=== PATIENT | female | born 1980 | race African-American/Black ===

== ENCOUNTER → 2016-07-28 | Outpatient (CLI) | payer MEDICAID | LOC: OD 10:49 | PROVIDERS: ATTEND Physician Assistant | DX: R50.9 Fever, unspecified (principal); R61 Generalized hyperhidrosis | CPT/HCPCS: 71020 ==

== ENCOUNTER 2016-10-15 20:24 | Emergency (ER) | payer MEDICAID ==
[2016-10-15 22:09] VITALS: BP 128/85
[2016-10-16] MEDS ORDERED: OXYCODONE-ACETAMINOPHEN 5-325 MG TABLET PO ONE (02:48)
[2016-10-16] MEDS ORDERED: CYCLOBENZAPRINE HCL 10 MG TABLET PO ONE (02:48)
--- NOTE | 2016-10-16 02:51 | ER Document Report ---
HPI - HPI Patient complains to provider of: low back pain Onset: This afternoon Onset/Duration: Sudden Quality of pain: Sharp Pain Level: 5 Context: Patient states she has a history of chronic low back pain that was aggravated today after lifting a 5 gallon bucket while at work. Patient complains of sudden onset of left sided low back pain. Patient complains of radiculopathy, although states that she has chronic radicular pain into the left lower extremity. Patient denies any urinary retention or incontinence. Associated Symptoms: Other - Left lower back pain. denies: Fever, Weakness Exacerbated by: Movement Relieved by: Denies Similar symptoms previously: Yes Recently seen / treated by doctor: No - ROS ROS below otherwise negative: Yes Systems Reviewed and Negative: Yes All other systems reviewed and negative - CONSTITUTIONAL Constitutional: DENIES: Fever - NEURO Neurology: DENIES: Weakness - REPRODUCTIVE LMP: 09-17-16 - MUSCULOSKELETAL Musculoskeletal: REPORTS: Extremity pain - Left lower extremity, Back Pain. DENIES: Swelling - Left lower back - DERM Skin Color: Normal Skin Problems: None Past Medical History - General Information source: Patient - Social History Smoking Status: Current Every Day Smoker Frequency of alcohol use: Occasional Drug Abuse: None Occupation: [employer] Family History: Reviewed & Not Pertinent Patient has suicidal ideation: No Patient has homicidal ideation: No - Past Medical History Cardiac Medical History: Reports: Hx Hypertension Denies: Hx Coronary Artery Disease, Hx Heart Attack Pulmonary Medical History: Denies: Hx Asthma, Hx Bronchitis, Hx COPD, Hx Pneumonia Neurological Medical History: Denies: Hx Cerebrovascular Accident, Hx Seizures Endocrine Medical History: Reports: Hx Hypothyroidism Renal/ Medical History: Denies: Hx Peritoneal Dialysis Musculoskeltal Medical History: Denies Hx Arthritis Past Surgical History: Reports: Hx Orthopedic Surgery, Hx Thyroid Surgery, Hx Tubal Ligation - Immunizations Hx Diphtheria, Pertussis, Tetanus Vaccination: No Vertical Provider Document - CONSTITUTIONAL Agree With Documented VS: Yes Exam Limitations: No Limitations General Appearance: WD/WN, No Apparent Distress Notes: PHYSICAL EXAMINATION: GENERAL: Well-appearing, well-nourished and in no acute distress. HEAD: Atraumatic, normocephalic. EYES: sclera clear, anicteric, conjunctiva are normal. ENT: nares patent, Moist mucous membranes. NECK: Normal range of motion, supple no lymphadenopathy LUNGS: respirations unlabored HEART: Regular rate and rhythm without murmurs EXTREMITIES: Normal range of motion, no pitting or edema. No cyanosis. Gait normal, pt ambulates without difficulty BACK: Left lower lumbar paraspinal tenderness, no midline tenderness, no deformities or step-offs. No CVA tenderness. NEUROLOGICAL: Cranial nerves grossly intact. Normal speech, normal gait. No saddle anesthesia. PSYCH: Normal mood, normal affect. SKIN: Warm, Dry, normal turgor, no rashes or lesions noted. - INFECTION CONTROL TRAVEL OUTSIDE OF THE [place] IN LAST 30 DAYS: No - RESPIRATORY O2 Sat by Pulse Oximetry: 98 Course - Vital Signs Vital signs: Temp Pulse Resp BP Pulse Ox 98.2 F 80 18 128/85 H 98 10/15/16 22:06 10/15/16 22:06 10/15/16 22:06 10/15/16 22:06 10/15/16 22:06 Discharge - Discharge Clinical Impression: History of chronic back pain Low back strain Qualifiers: Encounter type: initial encounter Qualified Code(s): S39.012A - Strain of muscle, fascia and tendon of lower back, initial encounter Radiculopathy Qualifiers: Spinal region: lumbar Qualified Code(s): M54.16 - Radiculopathy, lumbar region Condition: Stable Disposition: HOME, SELF-CARE Instructions: Ice Packs ([facility]), Oral Narcotic Medication ([facility]), Low Back Pain ( [facility]), Muscle Strain ([facility]) Additional Instructions: Return immediately for any new or worsening symptoms Followup with your primary care provider, call tomorrow to make a followup appointment Take your muscle relaxer that you have at home as prescribed Prescriptions: Oxycodone HCl/Acetaminophen [Percocet 5-325 mg Tablet] 1 tab PO ASDIR PRN #15 tablet PRN Reason: Forms: Return to Work Referrals: KAYLYN MITCHELL PA [NO LOCAL MD] - 10/18/16
== END 2016-10-16 03:09 | disposition home or self-care (01) ==
LOC: ER 20:24
DX: S39.012A Strain of muscle, fascia and tendon of lower back, initial encounter (principal); X50.0XXA Overexertion from strenuous movement or load, initial encounter; Y99.0 Civilian activity done for income or pay; G89.29 Other chronic pain; M54.5 Low back pain; I10 Essential (primary) hypertension; E03.9 Hypothyroidism, unspecified; Z98.51 Tubal ligation status
CPT/HCPCS: 99283; J3490

== ENCOUNTER → 2016-11-24 | Outpatient (CLI) | payer MEDICAID ==
--- NOTE | 2016-11-24 10:16 | RADIOLOGY REPORT (SQ) ---
EXAM DESCRIPTION: LUMBAR SPINE COMPLETE COMPLETED DATE/TIME: 11/24/2016 9:40 am REASON FOR STUDY: LOW BACK PAIN M54.5 LOW BACK PAIN COMPARISON: None. NUMBER OF VIEWS: Five views including obliques. TECHNIQUE: AP, lateral, oblique, and sacral radiographic images acquired of the lumbar spine. LIMITATIONS: None. FINDINGS: MINERALIZATION: Normal. SEGMENTATION: L5 may represent a transitional vertebra. ALIGNMENT: Normal. VERTEBRAE: Maintained height. No fracture or worrisome bone lesion. DISCS: Preserved height. No significant osteophytes or end plate irregularity. POSTERIOR ELEMENTS: Pedicles and facets are intact. No pars defect or posterior arch defects. HARDWARE: None in the spine. PARASPINAL SOFT TISSUES: Normal. PELVIS: Intact as visualized. No fractures or worrisome bone lesions. SI joints intact. OTHER: No other significant finding. IMPRESSION: L5 may represent a transitional vertebra. TECHNICAL DOCUMENTATION: JOB ID: [id number] [employer]- All Rights Reserved
== END ==
LOC: OD 09:06
PROVIDERS: ATTEND Family Medicine
DX: M54.5 Low back pain (principal)
CPT/HCPCS: 72110

== ENCOUNTER → 2016-12-09 | Outpatient (CLI) | payer MEDICAID ==
[2016-12-09 13:56] LABS: HEMATOCRIT 37.3 % (36.0-47.0); HEMOGLOBIN 11.9 g/dL (12.0-15.5); HGB HCT DIFFERENCE -1.6; MEAN CORPUSCULAR HEMOGLOBIN 28.5 pg (27.0-33.4); MEAN CORPUSCULAR HGB CONC 31.8 g/dL (32.0-36.0); MEAN CORPUSCULAR VOLUME 90 fl (80-97); RED BLOOD COUNT 4.17 10^6/uL (3.72-5.28); RED CELL DISTRIBUTION WIDTH 16.2 % (11.5-14.0); WHITE BLOOD COUNT 9.4 10^3/uL (4.0-10.5)
[2016-12-09 14:20] LABS: ALANINE AMINOTRANSFERASE 32 U/L (9-52); ALBUMIN 4.5 g/dL (3.5-5.0); ALKALINE PHOSPHATASE 48 U/L (38-126); ANION GAP 10 (5-19); ASPARTATE AMINO TRANSFERASE 42 U/L (14-36); BILIRUBIN,DIRECT 0.3 mg/dL (0.0-0.4); BILIRUBIN,TOTAL 0.4 mg/dL (0.2-1.3); BLOOD UREA NITROGEN 17 mg/dL (7-20); CALCIUM 9.4 mg/dL (8.4-10.2); CARBON DIOXIDE 30 mmol/L (22-30); CHLORIDE 101 mmol/L (98-107); CREATININE RESULT 1.29 mg/dL (0.52-1.25); GLUCOSE 96 mg/dL (75-110); POTASSIUM 4.6 mmol/L (3.6-5.0); SODIUM 141.1 mmol/L (137-145); TOTAL PROTEIN 8.5 g/dL (6.3-8.2)
[2016-12-09 14:26] LABS: C-REACTIVE PROTEIN < 5.0 mg/L (<10.0)
[2016-12-09 14:49] LABS: ERYTHROCYTE SEDIMENTATION RATE 21 mm/hr (0-20)
== END ==
LOC: OD 13:07
PROVIDERS: ATTEND Family Medicine
DX: M25.50 Pain in unspecified joint (principal)
CPT/HCPCS: 36415; 80053; 84443; 85027; 85652; 86038; 86140; 86430

== ENCOUNTER → 2017-06-14 | Outpatient (CLI) | payer MEDICAID ==
--- NOTE | 2017-06-14 09:06 | RADIOLOGY REPORT (SQ) ---
EXAM DESCRIPTION: SHOULDER RIGHT 2 OR MORE VIEWS COMPLETED DATE/TIME: 06/14/2017 8:39 am REASON FOR STUDY: PAIN IN RIGHT SHOULDER M25.511 PAIN IN RIGHT SHOULDER COMPARISON: None. NUMBER OF VIEWS: Three views. TECHNIQUE: Internal rotation, external rotation, and Y view images acquired of the right shoulder. LIMITATIONS: None. FINDINGS: MINERALIZATION: Normal. BONES: No acute fracture or dislocation. No worrisome bone lesions. No significant osteophytes. GLENOHUMERAL JOINT: No significant findings. ACROMIOCLAVICULAR JOINT: No large osteophytes. SOFT TISSUES: No calcifications. VISUALIZED RIBS, SPINE, AND LUNG: No other significant finding. OTHER: No other significant finding. IMPRESSION: NEGATIVE STUDY OF THE RIGHT SHOULDER. NO EXPLANATION FOR PAIN. TECHNICAL DOCUMENTATION: JOB ID: [id number] [employer]- All Rights Reserved
== END ==
LOC: OD 08:27
PROVIDERS: ATTEND Physician Assistant
DX: M25.511 Pain in right shoulder (principal)

== ENCOUNTER → 2017-12-07 | Outpatient (CLI) | payer MEDICAID ==
--- NOTE | 2017-12-08 08:20 | WOMENS IMAGING REPORT ---
EXAM DESCRIPTION: 3D DX MAMMO BILAT COMPLETED DATE/TIME: 12/07/2017 9:37 am REASON FOR STUDY: MASTODYNIA; N64.4 N64.4 MASTODYNIA COMPARISON: None. TECHNIQUE: Standard craniocaudal and mediolateral oblique views of each breast recorded using digita l acquisition and breast tomosynthesis. Bilateral 90 mediolateral mammograms were also obtained LIMITATIONS: None. FINDINGS: RIGHT BREAST MASSES: No suspicious masses. CALCIFICATIONS: No new or suspicious calcifications. ARCHITECTURAL DISTORTION: None. DEVELOPING DENSITY: None. ASYMMETRY: None noted. OTHER: No other significant findings. LEFT BREAST MASSES: No suspicious masses. CALCIFICATIONS: No new or suspicious calcifications. ARCHITECTURAL DISTORTION: None. DEVELOPING DENSITY: None. ASYMMETRY: None noted. OTHER: No other significant finding. Read with the assistance of CAD: .[facility] - R2 Cenova Version 1.3 .[facility] - R2 Cenova Version 1.3 .[facility] - R2 Cenova Version 2.4 .[facility] [place] R2 Cenova Version 2.4 .[facility] - R2 Ent Surgeon Version 9.2 IMPRESSION: No mammographic evidence for malignancy bilaterally. BREAST DENSITY: a. The breasts are almost entirely fatty. BIRAD: 1 Negative. RECOMMENDATION: RECOMMENDED FOLLOW UP: Please continue bilateral screening mammography in November 2018 SPECIFIC INTERVENTION/IMAGING/CONSULTATION RECOMMENDED:Please continue bilateral screening mammograph y in November 2018 COMMUNICATION:Patient notified by letter COMMENT: The patient has been notified of the results by letter per SA requirements. Additional no tification policies are in place for contacting patient with suspicious or incomplete findings. Quality ID #[id number]: The [employer] recommends an annual screening mammogram for women aged 40 years or over. This facility utilizes a reminder system to ensure that all patients receive reminder letters, and/or direct phone calls for appointments. This includes reminders for routine scr eening mammograms, diagnostic mammograms, or other Breast Imaging Interventions when appropriate. Th is patient will be placed in the appropriate reminder system. The [employer] (ACR) has developed recommendations for screening MRI of the breast s in certain patient populations, to be used in conjunction with mammography. Breast MRI surveillanc e may be appropriate for women with more than 20% lifetime risk of developing breast cancer as deter mined by genetic testing, significant family history of the disease, or history of mantle radiation f or Hodgkins Disease. ACR Practice Guidelines 2008. DBT Technology DBT is a type of tomographic mammography. With conventional mammography, overlapping breast tissue ma y make lesions difficult to detect, even with good compression. DBT uses an x-ray tube that rotates a round the breast, taking images at different angles. These images are then combined to create thin sl ices of the breast that the radiologist can view as a 3D reconstruction. The Hologic unit can perform full-field digital mammograms (2D imaging); or DBT (3D imaging); or both, in a combination mode that quickly performs both the mammogram and the tomosynthesis scan while the breast is still compressed. PQRS 6045F: Fluoroscopic imaging is not utilized for breast tomosynthesis. TECHNICAL DOCUMENTATION: FINDING NUMBER: (1) ASSESSMENT: (1) JOB ID: [id number] [employer]- All Rights Reserved Reading location - IP/workstation name: [email or web address]
== END ==
LOC: WI 08:57
PROVIDERS: ATTEND Physician Assistant
DX: N64.4 Mastodynia (principal)
CPT/HCPCS: 77066; G0279; 77062

== ENCOUNTER 2018-01-29 20:11 | Emergency (ER) | payer OTHER, MEDICAID ==
[2018-01-29] MEDS ORDERED: OXYCODONE-ACETAMINOPHEN 5-325 MG TABLET PO ONE (20:41)
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
[2018-01-30 02:58] VITALS: BP 137/83
== END 2018-01-29 22:22 | disposition home or self-care (01) ==
LOC: ER 20:11
DX: M54.41 Lumbago with sciatica, right side (principal); V49.50XA Passenger injured in collision with unspecified motor vehicles in traffic accident, initial encounter; I10 Essential (primary) hypertension; F17.200 Nicotine dependence, unspecified, uncomplicated; Z88.0 Allergy status to penicillin
CPT/HCPCS: 72070; 72110; 99283

== ENCOUNTER 2018-11-17 21:25 | Emergency (ER) | payer MEDICAID, OTHER ==
[2018-11-17 22:02] VITALS: BP 111/72
[2018-11-18] MEDS ORDERED: DIAZEPAM 5 MG TABLET PO ONE (02:56)
--- NOTE | 2018-11-18 03:02 | ER Document Report ---
HPI - HPI Time Seen by Provider: 11/18/18 02:48 Pain Level: 2 Context: Patient is a 38-year-old female that comes to the emergency department for chief complaint of muscle spasms. She states she is mainly getting them in her legs, also in her mid to upper back. She states that this started this afternoon, she did spend the morning outside for a couple of hours in the sun, she states that she has been rehydrating since then and drink "tons of fluids". She states right now she has a spasm in her mid upper back, not currently in the legs, this comes and goes. She states that she has chronic muscle spasms. She denies fever/chills, chest pain, shortness of breath, abdominal pain, nausea/vomiting, headache, focal numbness or weakness, incontinence. Past medical history includes hypothyroidism, fibromyalgia, hypertension. - REPRODUCTIVE Reproductive: DENIES: : Past Medical History - General Information source: Patient - Social History Smoking Status: Never Smoker Frequency of alcohol use: None Drug Abuse: None Lives with: Family Family History: Reviewed & Not Pertinent - Past Medical History Cardiac Medical History: Reports: Hx Hypertension Denies: Hx Coronary Artery Disease, Hx Heart Attack Pulmonary Medical History: Denies: Hx Asthma, Hx Bronchitis, Hx COPD, Hx Pneumonia Neurological Medical History: Denies: Hx Cerebrovascular Accident, Hx Seizures Endocrine Medical History: Reports: Hx Diabetes Mellitus Type 2, Hx Hypothyroidism Renal/ Medical History: Denies: Hx Peritoneal Dialysis Musculoskeletal Medical History: Reports Hx Arthritis Past Surgical History: Reports: Hx Orthopedic Surgery, Hx Thyroid Surgery, Hx Tubal Ligation - Immunizations Hx Diphtheria, Pertussis, Tetanus Vaccination: No Vertical Provider Document - CONSTITUTIONAL General Appearance: WD/WN, No Apparent Distress, Obese - INFECTION CONTROL TRAVEL OUTSIDE OF THE [place] IN LAST 30 DAYS: No - HEENT HEENT: Atraumatic, Normal ENT Exam, Normocephalic - NECK Neck: Normal Inspection - RESPIRATORY Respiratory: Breath Sounds Normal, No Respiratory Distress - CARDIOVASCULAR Cardiovascular: Regular Rate, Regular Rhythm - GI/ABDOMEN Gastrointestinal: Abdomen Soft, Abdomen Non-Tender - BACK Back: negative: Normal Inspection - There is some tenderness along the left parathoracic musculature and towards the left upper back. Pain with range of motion of these areas. No midline tenderness, no saddle anesthesia, no signs of trauma. Normal upper and lower extremity range of motion, normal strength, normal distal neurovascular exam. - MUSCULOSKELETAL/EXTREMETIES Musculoskeletal/Extremeties: MAEW, FROM, Non-Tender - NEURO Level of Consciousness: Awake, Alert, Appropriate Motor/Sensory: No Motor Deficit, No Sensory Deficit - DERM Integumentary: Warm, Dry, No Rash Course - Re-evaluation Re-evalutation: Patient is very well-appearing. She does move with some stiffness, she does have painful palpation mainly over the left parathoracic and mid upper back. She is reporting muscle spasms after being outside today. She states this happens to her frequently. Vital signs unremarkable. Patient appears well- hydrated. I discussed options including work-up such as CBC, chemistries, etc., this was declined, patient is requesting treatment and discharge. She is already on Flexeril but states this was not working earlier. She was provided with a small amount of diazepam to use instead, I discussed expectations, close follow-up, and return precautions. Patient states understanding and agreement. - Vital Signs Vital signs: Temp Pulse Resp BP Pulse Ox 98.2 F 92 20 111/72 98 11/17/18 22:00 11/17/18 22:00 11/17/18 22:00 11/17/18 22:00 11/17/18 22:00 Discharge - Discharge Clinical Impression: Muscle spasm Leg pain Qualifiers: Laterality: bilateral Qualified Code(s): M79.604 - Pain in right leg Back pain Qualifiers: Back pain location: thoracic back pain Chronicity: unspecified Back pain laterality: bilateral Qualified Code(s): M54.6 - Pain in thoracic spine Condition: Stable Disposition: HOME, SELF-CARE Additional Instructions: Your evaluation is most consistent with muscular spasm. You appear to have successfully rehydrated however. I recommend taking the diazepam as a muscle relaxer as needed for the next 1 to 2 days, apply heat to your back, and rest. Continue to hydrate. After symptoms improved to revert back to your cyclamens pain, do not take at the same time, do not drink alcohol, drive, or take other sedating medications with the prescribed muscle relaxer tonight. Follow-up with your primary care provider for additional evaluation and management. Return if you worsen including severe worsening pain, cramps, fever, vomiting, or any other concerning symptoms. Prescriptions: Diazepam [Valium 5 mg Tablet] 1 - 2 tab PO TID PRN #12 tablet PRN Reason: Forms: Return to Work Referrals: KAYLYN MITCHELL PA [Primary Care Provider] - Follow up as needed
== END 2018-11-18 03:06 | disposition home or self-care (01) ==
LOC: ER 21:25
DX: M62.838 Other muscle spasm (principal); M79.604 Pain in right leg; M54.6 Pain in thoracic spine; I10 Essential (primary) hypertension; Z98.51 Tubal ligation status
CPT/HCPCS: 99283; J3490

== ENCOUNTER 2019-02-22 11:41 | Emergency (ER) | payer MEDICAID ==
--- NOTE | 2019-02-22 12:46 | EKG REPORT ---
SEVERITY:- BORDERLINE ECG - SINUS RHYTHM BORDERLINE T ABNORMALITIES, ANTERIOR LEADS BORDERLINE PROLONGED QT INTERVAL : Confirmed by: Joe Juarez MD 22-Feb-2019 12:45:55
--- NOTE | 2019-02-22 13:08 | ER Document Report ---
ED Medical Screen (RME) - General Chief Complaint: Palpitations Stated Complaint: PALPATATIONS Time Seen by Provider: 02/22/19 12:59 Primary Care Provider: KAYLYN MITCHELL PA [Primary Care Provider] - Follow up as needed Information source: Patient Notes: Patient presents complaining of heart palpitations for the past week. Patient reports generalized weakness hot and cold flashes. Patient is concerned that she may be having a thyroid storm. I have greeted and performed a rapid initial assessment of this patient. A comprehensive ED assessment and evaluation of the patient, analysis of test results and completion of the medical decision making process will be conducted by additional ED providers. TRAVEL OUTSIDE OF THE [place] IN LAST 30 DAYS: No - Related Data Allergies/Adverse Reactions: Penicillins Allergy (Verified 02/22/19 11:46) Past Medical History - Past Medical History Cardiac Medical History: Reports: Hx Hypertension Denies: Hx Coronary Artery Disease, Hx Heart Attack Pulmonary Medical History: Denies: Hx Asthma, Hx Bronchitis, Hx COPD, Hx Pneumonia Neurological Medical History: Denies: Hx Cerebrovascular Accident, Hx Seizures Endocrine Medical History: Reports: Hx Diabetes Mellitus Type 2, Hx Hypothyroidism Renal/ Medical History: Denies: Hx Peritoneal Dialysis Musculoskeltal Medical History: Reports Hx Arthritis Past Surgical History: Reports: Hx Orthopedic Surgery, Hx Thyroid Surgery, Hx Tubal Ligation - Immunizations Hx Diphtheria, Pertussis, Tetanus Vaccination: No Physical Exam - Vital signs Vitals: Temp Pulse Resp BP Pulse Ox 98.3 F 94 18 148/87 H 96 02/22/19 11:55 02/22/19 11:55 02/22/19 11:55 02/22/19 11:55 02/22/19 11:55 - Cardiovascular Rhythm: Regular. No: Tachycardia Heart sounds: S1 appreciated, S2 appreciated Course - Vital Signs Vital signs: Temp Pulse Resp BP Pulse Ox 98.3 F 94 18 148/87 H 96 02/22/19 11:55 02/22/19 11:55 02/22/19 11:55 02/22/19 11:55 02/22/19 11:55 Doctor's Discharge - Discharge Referrals: KAYLYN MITCHELL PA [Primary Care Provider] - Follow up as needed
[2019-02-22 13:43] LABS: ABSOLUTE LYMPHOCYTES (AUTO) 1.6 10^3/uL (0.5-4.7); ABSOLUTE MONOCYTES (AUTO) 0.4 10^3/uL (0.1-1.4); ABSOLUTE NEUT (AUTO) 3.9 10^3/uL (1.7-8.2); BASOPHILS % (AUTO) 0.6 % (0-2); EOSINOPHILS % (AUTO) 0.7 % (0-6); HEMATOCRIT 37.3 % (36.0-47.0); HEMOGLOBIN 12.2 g/dL (12.0-15.5); LYMPHOCYTES % (AUTO) 26.5 % (13-45); MEAN CORPUSCULAR HEMOGLOBIN 29.2 pg (27.0-33.4); MEAN CORPUSCULAR HGB CONC 32.7 g/dL (32.0-36.0); MEAN CORPUSCULAR VOLUME 89 fl (80-97); MONOCYTES % (AUTO) 6.9 % (3-13); PLATELET COUNT 313 10^3/uL (150-450); RED BLOOD COUNT 4.17 10^6/uL (3.72-5.28); RED CELL DISTRIBUTION WIDTH 15.7 % (11.5-14.0); SEGMENTED NEUTROPHILS % (AUTO) 65.3 % (42-78); TOTAL CELLS COUNTED % (AUTO) 100 %
[2019-02-22 13:50] LABS: APPEARANCE,URINE SLIGHTLY-CLOUDY; BILIRUBIN,URINE NEGATIVE (NEGATIVE); COLOR,URINE YELLOW; GLUCOSE, URINE NEGATIVE (NEGATIVE); KETONES,URINE NEGATIVE (NEGATIVE); LEUKOCYTE ESTERASE,URINE NEGATIVE (NEGATIVE); NITRITE,URINE NEGATIVE (NEGATIVE); PROTEIN,URINE 100 mg/dL (NEGATIVE); URINE SPECIFIC GRAVITY 1.027
[2019-02-22 14:03] LABS: ALBUMIN 4.7 g/dL (3.5-5.0); ALKALINE PHOSPHATASE 64 U/L (38-126); ANION GAP 13 (5-19); ASPARTATE AMINO TRANSFERASE 45 U/L (14-36); BILIRUBIN,DIRECT 0.4 mg/dL (0.0-0.4); BILIRUBIN,TOTAL 0.6 mg/dL (0.2-1.3); BLOOD UREA NITROGEN 14 mg/dL (7-20); CALCIUM 9.1 mg/dL (8.4-10.2); CARBON DIOXIDE 29 mmol/L (22-30); CHLORIDE 96 mmol/L (98-107); GLUCOSE 98 mg/dL (75-110); POTASSIUM 4.5 mmol/L (3.6-5.0); TOTAL PROTEIN 8.8 g/dL (6.3-8.2)
[2019-02-22 14:19] LABS: FREE T3 2.64 pg/mL (2.77-5.27); FREE T4 (FREE THYROXINE) 0.89 ng/dL (0.78-2.19)
--- NOTE | 2019-02-22 14:23 | RADIOLOGY REPORT (SQ) ---
EXAM DESCRIPTION: CHEST 2 VIEWS COMPLETED DATE/TIME: 02/22/2019 1:39 pm REASON FOR STUDY: palpitations COMPARISON: None. EXAM PARAMETERS: NUMBER OF VIEWS: two views TECHNIQUE: Digital Frontal and Lateral radiographic views of the chest acquired. RADIATION DOSE: NA LIMITATIONS: none FINDINGS: LUNGS AND PLEURA: No opacities, masses or pneumothorax. No pleural effusion. MEDIASTINUM AND HILAR STRUCTURES: No masses or contour abnormalities. HEART AND VASCULAR STRUCTURES: Heart normal size. No evidence for failure. BONES: No acute findings. HARDWARE: None in the chest. OTHER: No other significant finding. IMPRESSION: NO ACUTE RADIOGRAPHIC FINDING IN THE CHEST. TECHNICAL DOCUMENTATION: JOB ID: [id number] [employer]- All Rights Reserved Reading location - IP/workstation name: [email or web address]
[2019-02-22] MEDS ORDERED: NORMAL SALINE 1000 ML 1,000 ML IV ONE (16:03)
[2019-02-22] MEDS ORDERED: DIAZEPAM 5 MG TABLET PO ONE (17:31)
[2019-02-22] MEDS ORDERED: KETOROLAC TROMETHAMINE INJ/PF 30 MG/1 ML SDV IV ONE (17:31)
--- NOTE | 2019-02-22 17:40 | ER Document Report ---
ED General - General Chief Complaint: Palpitations Stated Complaint: PALPATATIONS Time Seen by Provider: 02/22/19 12:59 Primary Care Provider: KAYLYN MITCHELL PA [NO LOCAL MD] - Follow up as needed TRAVEL OUTSIDE OF THE [place] IN LAST 30 DAYS: No - HPI Notes: Patient is a 38-year-old female that presents to the emergency department for chief complaint of palpitations and back spasms. Patient reports intermittent heart palpitations over the last 1 to 2 weeks. She states she does take levothyroxine and has been taking it as prescribed. She denies any associated chest pain or shortness of breath. She has not experienced the palpitations since being hooked up to telemetry monitoring in the emergency room. Patient also complaining of a spasm on the left side of her back. She states she gets back spasms every single day. She does have a prescription for Flexeril but does not like taking it because it makes her loopy. She states she has intermittent he tried a TENS unit as well as stretching and heat. Her back spasm today feels identical to previous episodes of back spasms she has had. She denies any saddle anesthesia, lower examinee numbness or weakness. She denies any trauma or injury to her back. Past Medical History: Reviewed in chart Past Surgical History: Reviewed in chart Social History: Reviewed in chart Family History: Reviewed and noncontributory for presenting illness Allergies: Reviewed, see documented allergy list. REVIEW OF SYSTEMS: CONSTITUTIONAL : No fever No chills No diaphoresis No recent illness EENT: No vision changes No congestion No sore throat CARDIOVASCULAR: No chest pain palpitations RESPIRATORY: No shortness of breath No cough No difficulty breathing GASTROINTESTINAL: No abdominal pain No nausea No vomiting No diarrhea GENITOURINARY: No dysuria No hematuria No difficulty urinating MUSCULOSKELETAL: back pain No leg pain No arm pain SKIN: No rashes No lesions LYMPHATIC: No swollen, enlarged glands. NEUROLOGICAL: No lightheadedness No headache No weakness No paresthesias PSYCHIATRIC: No anxiety No depression PHYSICAL EXAMINATION: Vital signs reviewed, nursing noted reviewed. GENERAL: Well-appearing, obese and in no acute distress. HEAD: Atraumatic, normocephalic. EYES: Eyes appear normal, extraocular movements intact, sclera anicteric, conjunctiva are normal. ENT: nares patent, oropharynx clear without exudates. Moist mucous membranes. NECK: Normal range of motion, supple without lymphadenopathy LUNGS: Breath sounds clear to auscultation bilaterally and equal. No wheezes rales or rhonchi. HEART: Regular rate and rhythm without murmurs ABDOMEN: Soft, nontender, normoactive bowel sounds. No rebound, guarding, or rigidity. No masses appreciated. EXTREMITIES: Nontender, good range of motion, no pitting or edema. Back: Bilateral lumbar paraspinal muscle tenderness and spasm with the left being more tender with more palpable muscle spasm. Normal range of motion of the spine. No midline thoracic or lumbar tenderness. No overlying rash or erythema. NEUROLOGICAL: No focal neurological deficits. Moves all extremities spontaneous ly Motor and sensory grossly intact on exam. PSYCH: Normal mood, normal affect. SKIN: Warm, Dry, normal turgor, no rashes or lesions noted on exposed skin - Related Data Allergies/Adverse Reactions: Penicillins Allergy (Verified 02/22/19 11:46) Past Medical History - General Information source: Patient - Social History Smoking Status: Former Smoker Frequency of alcohol use: None Drug Abuse: None Family History: Reviewed & Not Pertinent Patient has suicidal ideation: No Patient has homicidal ideation: No - Past Medical History Cardiac Medical History: Reports: Hx Hypertension Denies: Hx Coronary Artery Disease, Hx Heart Attack Pulmonary Medical History: Denies: Hx Asthma, Hx Bronchitis, Hx COPD, Hx Pneumonia Neurological Medical History: Denies: Hx Cerebrovascular Accident, Hx Seizures Endocrine Medical History: Reports: Hx Diabetes Mellitus Type 2, Hx Hypothyroidism Renal/ Medical History: Denies: Hx Peritoneal Dialysis Musculoskeletal Medical History: Reports Hx Arthritis Past Surgical History: Reports: Hx Orthopedic Surgery, Hx Thyroid Surgery, Hx Tubal Ligation - Immunizations Hx Diphtheria, Pertussis, Tetanus Vaccination: No Physical Exam - Vital signs Vitals: Temp Pulse Resp BP Pulse Ox 98.3 F 94 18 148/87 H 96 02/22/19 11:55 02/22/19 11:55 02/22/19 11:55 02/22/19 11:55 02/22/19 11:55 Course - Re-evaluation Re-evalutation: 02/22/19 17:34 Vitals reviewed. Nursing notes reviewed. Patient is alert and in no acute distress. She does have an elevated TSH but free T4 and T3 are unremarkable. Patient is not in thyroid storm. Her EKG shows no dysrhythmia or ectopy. She has not had any associated chest pain to suggest ACS. Patient has no severe electrolyte derangements. Her lumbar back spasm is chronic in nature and unchanged. Patient given Valium and Toradol for symptom medic management. She has no focal neurologic deficits to necessitate further imaging. Patient will be discharged home in stable condition with close outpatient follow-up with Dr. Julio. She is in agreement with this plan of care. Laboratory 02/22/19 02/22/19 02/22/19 13:19 13:19 13:19 WBC 6.0 RBC 4.17 Hgb 12.2 Hct 37.3 MCV 89 MCH 29.2 MCHC 32.7 RDW 15.7 H Plt Count 313 Lymph % (Auto) 26.5 [place] % (Auto) 6.9 Eos % (Auto) 0.7 Baso % (Auto) 0.6 Absolute Neuts (auto) 3.9 Absolute Lymphs (auto) 1.6 Absolute Monos (auto) 0.4 Absolute Eos (auto) 0.0 Absolute Basos (auto) 0.0 Seg Neutrophils % 65.3 Sodium 137.5 Potassium 4.5 Chloride 96 L Carbon Dioxide 29 Anion Gap 13 BUN 14 Creatinine 1.28 H Est GFR ( Amer) 56 L Est GFR (MDRD) Non-Af 46 L Glucose 98 Calcium 9.1 Total Bilirubin 0.6 Direct Bilirubin 0.4 Neonat Total Bilirubin Not Reportable Neonat Direct Bilirubin Not Reportable Neonat Indirect Bili Not Reportable AST 45 H ALT 26 Alkaline Phosphatase 64 Troponin I Total Protein 8.8 H Albumin 4.7 TSH Free T4 Free T3 pg/mL Serum HCG, Qual NEGATIVE Urine Color Urine Appearance Urine pH Ur Specific [place] Urine Protein Urine Glucose (UA) Urine Ketones Urine Blood Urine Nitrite Urine Bilirubin Urine Urobilinogen Ur Leukocyte Esterase Urine WBC (Auto) Urine RBC (Auto) Urine Bacteria (Auto) Squamous Epi Cells Auto Urine Mucus (Auto) Urine Ascorbic Acid 02/22/19 02/22/19 02/22/19 13:19 13:19 13:19 WBC RBC Hgb Hct MCV MCH MCHC RDW Plt Count Lymph % (Auto) [place] % (Auto) Eos % (Auto) Baso % (Auto) Absolute Neuts (auto) Absolute Lymphs (auto) Absolute Monos (auto) Absolute Eos (auto) Absolute Basos (auto) Seg Neutrophils % Sodium Potassium Chloride Carbon Dioxide Anion Gap BUN Creatinine Est GFR ( Amer) Est GFR (MDRD) Non-Af Glucose Calcium Total Bilirubin Direct Bilirubin Neonat Total Bilirubin Neonat Direct Bilirubin Neonat Indirect Bili AST ALT Alkaline Phosphatase Troponin I < 0.012 Total Protein Albumin TSH 10.00 H Free T4 0.89 Free T3 pg/mL 2.64 L Serum HCG, Qual Urine Color YELLOW Urine Appearance SLIGHTLY-CLOUDY Urine pH 6.0 Ur Specific [place] 1.027 Urine Protein 100 H Urine Glucose (UA) NEGATIVE Urine Ketones NEGATIVE Urine Blood SMALL H Urine Nitrite NEGATIVE Urine Bilirubin NEGATIVE Urine Urobilinogen 2.0 H Ur Leukocyte Esterase NEGATIVE Urine WBC (Auto) 3 Urine RBC (Auto) 8 Urine Bacteria (Auto) TRACE Squamous Epi Cells Auto 10 Urine Mucus (Auto) RARE Urine Ascorbic Acid NEGATIVE Chest X-Ray 02/22/19 13:07 IMPRESSION: NO ACUTE RADIOGRAPHIC FINDING IN THE CHEST. - Vital Signs Vital signs: Temp Pulse Resp BP Pulse Ox 98.3 F 94 17 155/111 H 100 02/22/19 11:55 02/22/19 11:55 02/22/19 16:00 02/22/19 14:30 02/22/19 16:00 - Laboratory Result Diagrams: 02/22/19 13:19 02/22/19 13:19 Laboratory results interpreted by me: 02/22/19 02/22/19 02/22/19 13:19 13:19 13:19 RDW 15.7 H Chloride 96 L Creatinine 1.28 H Est GFR ( Amer) 56 L Est GFR (MDRD) Non-Af 46 L AST 45 H Total Protein 8.8 H TSH 10.00 H Free T3 pg/mL 2.64 L Urine Protein Urine Blood Urine Urobilinogen 02/22/19 13:19 RDW Chloride Creatinine Est GFR ( Amer) Est GFR (MDRD) Non-Af AST Total Protein TSH Free T3 pg/mL Urine Protein 100 H Urine Blood SMALL H Urine Urobilinogen 2.0 H - EKG Interpretation by Me Additional EKG results interpreted by me: 02/22/19 17:41 Interpreted by myself [id number]: Normal sinus rhythm, rate 93, normal axis, no STEMI, no ectopy Discharge - Discharge Clinical Impression: Lumbar paraspinal muscle spasm, Heart palpitations Condition: Stable Disposition: HOME, SELF-CARE Instructions: Palpitations (Irregular or Rapid Heartrate) ([facility]) Additional Instructions: Please return to the emergency department if you have any worsening, or concern of your symptoms. Please return to the emergency department if you develop chest pain, difficulty breathing, severe abdominal pain, or ongoing vomiting. Please follow-up with your primary care physician in 2-3 days and any other recommended physicians. If prescribed, take all medications as directed. If you have any questions or concerns do not hesitate to return the emergency department for evaluation. [] Referrals: CRISTIAN JULIO MD [Primary Care Provider] - Follow up in 3-5 days
[2019-02-22 18:07] VITALS: BP 131/90
== END 2019-02-22 18:08 | disposition home or self-care (01) ==
LOC: ER 11:41
DX: M62.830 Muscle spasm of back (principal); R00.2 Palpitations; I10 Essential (primary) hypertension; E11.9 Type 2 diabetes mellitus without complications; E03.9 Hypothyroidism, unspecified; Z98.51 Tubal ligation status; Z88.0 Allergy status to penicillin
CPT/HCPCS: 93005; 99285; 96374; 36415; 84439; 84443; 84703; 85025; 80053; 81001; 84484; 84481; 71046; 93010; J3490; J1885

== ENCOUNTER 2019-04-26 08:16 | Emergency (ER) | payer MEDICAID ==
--- NOTE | 2019-04-26 10:26 | ER Document Report ---
ED General - General Chief Complaint: Breast Lump Stated Complaint: BREAST PAIN Time Seen by Provider: 04/26/19 10:10 Primary Care Provider: KAYLYN MITCHELL PA [Primary Care Provider] - Follow up as needed TRAVEL OUTSIDE OF THE [place] IN LAST 30 DAYS: No - HPI Notes: Patient is a 38-year-old female who presents to the emergency department for evaluation of pain and a lump in her right breast. Patient states the pain is been there for about 8 or 9 days. It was a sharp and stabbing pain, intermittent. She states she woke up in the middle the night to go to the bathroom and she noticed an increase in her pain. She fell around the area and felt a lump, so she presents to the ED for further evaluation. She does have a family history of breast cancer. She states her mammograms were up-to-date, but she was supposed to have one of December this year. They were all normal per her. She does have a history of thyroid cancer. She denies any unintentional weight loss or night sweats. - Related Data Allergies/Adverse Reactions: Penicillins Allergy (Verified 04/26/19 08:30) Home Medications: lipitor, synthroid, omeprazole Past Medical History - General Information source: Patient - Social History Smoking Status: Current Some Day Smoker Chew tobacco use (# tins/day): No Frequency of alcohol use: Occasional Drug Abuse: None Family History: Malignancy - Breast cancer in mother Patient has suicidal ideation: No Patient has homicidal ideation: No - Past Medical History Cardiac Medical History: Reports: Hx Hypercholesterolemia, Hx Hypertension Denies: Hx Coronary Artery Disease, Hx Heart Attack Pulmonary Medical History: Denies: Hx Asthma, Hx Bronchitis, Hx COPD, Hx Pneumonia Neurological Medical History: Denies: Hx Cerebrovascular Accident, Hx Seizures Endocrine Medical History: Reports: Hx Diabetes Mellitus Type 2, Hx Hypothyroidism Renal/ Medical History: Denies: Hx Peritoneal Dialysis Malignancy Medical History: Reports: Other - Thyroid cancer Musculoskeletal Medical History: Reports Hx Arthritis Past Surgical History: Reports: Hx Orthopedic Surgery, Hx Thyroid Surgery, Hx Tubal Ligation - Immunizations Hx Diphtheria, Pertussis, Tetanus Vaccination: No Review of Systems - Review of Systems Constitutional: No symptoms reported EENT: No symptoms reported Cardiovascular: No symptoms reported Respiratory: No symptoms reported Gastrointestinal: No symptoms reported Genitourinary: No symptoms reported Female Genitourinary: No symptoms reported Musculoskeletal: No symptoms reported Skin: No symptoms reported Neurological/Psychological: No symptoms reported Physical Exam - Vital signs Vitals: Temp Pulse Resp BP Pulse Ox 98.1 F 83 18 151/99 H 100 04/26/19 08:18 04/26/19 08:18 04/26/19 08:18 04/26/19 08:18 04/26/19 08:18 - Notes Notes: Vital signs reviewed, please refer to chart. Head is normocephalic, atraumatic. Pupils equal round, reactive to light. Neck is supple without meningismus. Heart is regular rate and rhythm. Lungs are clear to auscultation bilaterally. Patient with pendulous and large breasts bilaterally. Exam is limited by size. She does have bilateral inverted nipples. She has a partially 1.5 cm well-circumscribed tender lump, at the 9 o'clock position on the right breast. No other significant masses or local adenopathy is appreciated. No nipple discharge. Abdomen is soft, nontender, normoactive bowel sounds throughout. Extremities without cyanosis, clubbing. Posterior calves are nontender. Peripheral pulses are equal. Skin is warm and dry. Course - Re-evaluation Re-evalutation: 04/26/19 10:29 Patient presents emergency department for evaluation of a breast mass. She sent for ultrasound. The importance of continued mammograms and close follow-up was stressed to the patient and she voiced understanding. Awaiting ultrasound results. 04/26/19 12:50 Ultrasound findings are very nonspecific. I explained to the patient that one test could not exclude any sort of malignancy. It is incredibly important she have follow-up mammogram for further evaluation. She voiced understanding. She plans to contact Dr. Dyer for follow-up, return to the ED with worsening. - Vital Signs Vital signs: Temp Pulse Resp BP Pulse Ox 98.1 F 83 18 151/99 H 100 04/26/19 08:18 04/26/19 08:18 04/26/19 08:18 04/26/19 08:18 04/26/19 08:18 Discharge - Discharge Clinical Impression: Lump of right breast Condition: Stable Disposition: HOME, SELF-CARE Instructions: Breast Lumps ([facility]) Additional Instructions: Your ultrasound findings today were very nonspecific. It is incredibly important to get a mammogram as soon as possible for further evaluation. Follow-up with Dr. Dyer this week. Return to the emergency department with worsening or new concerning symptoms of any sort. Referrals: KAYLYN MITCHELL PA [Primary Care Provider] - Follow up as needed
--- NOTE | 2019-04-26 12:30 | RADIOLOGY REPORT (SQ) ---
EXAM DESCRIPTION: U/S BREAST UNILATERAL LIMITED COMPLETED DATE/TIME: 04/26/2019 12:05 pm REASON FOR STUDY: breast lump, right breast, 9o'clock outside [place] COMPARISON: Mammography 12/07/2017 TECHNIQUE: Static and Realtime grayscale interrogation of focal area(s) of concern in the right juanis st(s) acquired. 9 o'clock location. Selected color doppler/spectral images saved to PACS. LIMITATIONS: None. FINDINGS: Masses:There is a focal heterogeneous area which is hypervascular. No discrete mass. Mil dly hypoechoic. No fluid collection. Architecture:Increased vascularity. Other: None. IMPRESSION: Nonspecific ultrasound findings. No focal mass. No cyst. BIRAD: 0 Incomplete: Need additional imaging evaluation and/or prior mammograms for comparison.. RECOMMENDATION: RECOMMENDED FOLLOW-UP: Mammographic correlation recommended. COMMENT: The [employer] ([employer]) has developed recommendations for screening MRI of the breasts in certain patient populations, to be used in conjunction with mammography. Breast MRI s urveillance may be appropriate for women with more than 20% lifetime risk of developing breast cancer as determined by genetic testing, significant family history of the disease, or history of mantle r adiation for Hodgkins Disease. [employer] Practice Guidelines 2008. TECHNICAL DOCUMENTATION: FINDING NUMBER: (1) ASSESSMENT: (1) JOB ID: [id number] [employer]- All Rights Reserved Reading location - IP/workstation name: [email or web address]
[2019-04-26 13:06] VITALS: BP 131/88
== END 2019-04-26 13:10 | disposition home or self-care (01) ==
LOC: ER 08:16
DX: N63.13 Unspecified lump in the right breast, lower outer quadrant (principal); N64.4 Mastodynia; F17.200 Nicotine dependence, unspecified, uncomplicated; I10 Essential (primary) hypertension; E11.9 Type 2 diabetes mellitus without complications
CPT/HCPCS: 76642; 99283

== ENCOUNTER → 2019-05-30 | Outpatient (CLI) | payer MEDICAID ==
--- NOTE | 2019-05-30 11:43 | WOMENS IMAGING REPORT ---
EXAM DESCRIPTION: U/S BREAST UNILAT LIMITED COMPLETE DATE/TIME: 05/30/2019 9:41 am REASON FOR STUDY: N63.10 RIGHT BREAST N63.10 UNSPECIFIED LUMP IN THE RIGHT BREAST, UNSPECIFIED MONICA FINDINGS: Please see combined report for performance of procedure and radiologic supervision and int erpretation. IMPRESSION: Please see combined report for performance of procedure and radiologic supervision and i nterpretation. Reading location - IP/workstation name: [email or web address]
--- NOTE | 2019-06-15 12:11 | WOMENS IMAGING REPORT ---
EXAM DESCRIPTION: 3D DX MAMMO BILAT COMPLETED DATE/TIME: 05/30/2019 9:10 am REASON FOR STUDY: N63.10 BILAT DX N63.10 UNSPECIFIED LUMP IN THE RIGHT BREAST, UNSPECIFIED OMNICA COMPARISON: Digital diagnostic bilateral tomosynthesis mammogram dated 12/07/2017. EXAM PARAMETERS: Standard craniocaudal and mediolateral oblique views of each breast recorded using digital acquisition and breast tomosynthesis. Read with the assistance of CAD: .[facility] - [employer] Version 9.2 LIMITATIONS: None. FINDINGS: RIGHT BREAST MASSES: Since the prior examination, inversion of the right nipple. A marker was placed over the cl inically palpable mass in the periareolar region. New finding of increased ill-defined density in th e subareolar region of the breast. CALCIFICATIONS: No new or suspicious calcifications. ARCHITECTURAL DISTORTION: None. ASYMMETRY: None noted. OTHER: No other significant findings. LEFT BREAST MASSES: No suspicious masses. CALCIFICATIONS: No new or suspicious calcifications. ARCHITECTURAL DISTORTION: None. ASYMMETRY: None noted. OTHER: No other significant finding. BREAST ULTRASOUND: TECHNIQUE: Static and dynamic grayscale images acquired of the right breast in the specific areas of clinical/mammographic concern. Selected color Doppler images recorded. ELASTOGRAPHY PERFORMED: No. LIMITATIONS: None. FINDINGS: MASS: As on the prior examination dated 04/26/2019, ill-defined heterogenous area, mixed hypo and hy perechoic echotexture, in the areolar-periareolar region of the breast which measures 2.9 x 2.4 x 3.0 cm. Some blood flow is demonstrated. ELASTOGRAPHY CHARACTERISTICS: Not applicable. OTHER: No other significant finding. IMPRESSION: 1. In the Right areolar-periareolar region of the breast, increased ill-defined density and inversion of the nipple, represent new findings, since the mammogram dated 12/07/2017. Considera tions for these findings include inflammatory etiologies, with the possibility of other underlying pa thology not entirely excluded. The patient states that she has not being treated with any type of an tibiotics. BREAST DENSITY: b. There are scattered areas of fibroglandular density. BIRAD: ASSESSMENT: 4A-Suspicious abnormality: Needing intervention but with a low suspicion for mal ignancy. Biopsy should be performed in the absence of clinical contra-indication. RECOMMENDATION: 1. Surgical consult and Right breast biopsy if clinically indicated. COMMENT: 1. The results of this examination were discussed with the patient's provider on 05/30/2019 . The patient has been notified of the results by letter per [facility] requirements. Additional notification policies are in place for contacting patient with suspicious or incomplete findings. Quality ID #[id number]: The [employer] recommends an annual screening mammogram for women aged 40 years or over. This facility utilizes a reminder system to ensure that all patients receive reminder letters, and/or direct phone calls for appointments. This includes reminders for routine scr eening mammograms, diagnostic mammograms, or other Breast Imaging Interventions when appropriate. Th is patient will be placed in the appropriate reminder system. TECHNICAL DOCUMENTATION: FINDING NUMBER: (1) ASSESSMENT: (1) JOB ID: [id number] [employer]- All Rights Reserved Reading location - IP/workstation name: [email or web address]
== END ==
LOC: WI 08:35
PROVIDERS: ATTEND Physician Assistant
DX: N63.41 Unspecified lump in right breast, subareolar (principal)
CPT/HCPCS: 76642; 77066; G0279; 77062

== ENCOUNTER → 2019-06-08 | Outpatient (CLI) | payer MEDICAID | LOC: LAB 10:22 | PROVIDERS: ATTEND Family Medicine | DX: N60.01 Solitary cyst of right breast (principal) | CPT/HCPCS: 88305; 88342 ==

== ENCOUNTER 2019-06-12 08:18 | Emergency (ER) | payer MEDICAID ==
--- NOTE | 2019-06-12 09:49 | ER Document Report ---
ED Medical Screen (RME) - General Chief Complaint: Post Surgical Pain Stated Complaint: BREAST PAIN/SWELLING Time Seen by Provider: 06/12/19 09:38 Primary Care Provider: KAYLYN MITCHELL PA [Primary Care Provider] - Follow up as needed TRAVEL OUTSIDE OF THE [place] IN LAST 30 DAYS: No - HPI Notes: 06/12/19 09:47 38-year-old female presents emergency room for evaluation of worsening right breast pain after she had a breast biopsy performed approximately [address] Elizondo for concern of breast cancer due to right nipple inversion. Patient states since her biopsy her pain is become progressively worse, has become swollen and red. Denies any nipple drainage. patient states that the biopsy site is not red and inflamed. Patient denies any fevers or chills, denies any chest pain shortness of breath, nausea vomiting diarrhea. Patient is not taking any antibiotics, prior to biopsy she did take a week course of clindamycin. She did call Dr. Elizondo office, they advised her to wear compression bra yesterday, she has not been seen by a provider for this issue. I have greeted and performed a rapid initial assessment of this patient. A comprehensive ED assessment and evaluation of the patient, analysis of test results and completion of the medical decision making process will be conducted by additional ED providers. PHYSICAL EXAMINATION: GENERAL: Well-appearing, well-nourished and in no acute distress. HEAD: Atraumatic, normocephalic. EYES: Pupils equal round extraocular movements intact, conjunctiva are normal. ENT: Nares patent NECK: Normal range of motion LUNGS: No respiratory distress abd: R area with induration erythema warmth to touch. Noted erythema slight induration at 12:00, noted right nipple inversion, no nipple drainage. Musculoskeletal: Normal range of motion NEUROLOGICAL: Normal speech, normal gait. PSYCH: Normal mood, normal affect. SKIN: Warm, Dry, normal turgor, no rashes or lesions noted. - Related Data Allergies/Adverse Reactions: Penicillins Allergy (Verified 06/12/19 09:04) Past Medical History - Past Medical History Cardiac Medical History: Reports: Hx Hypercholesterolemia, Hx Hypertension Denies: Hx Coronary Artery Disease, Hx Heart Attack Pulmonary Medical History: Denies: Hx Asthma, Hx Bronchitis, Hx COPD, Hx Pneumonia Neurological Medical History: Denies: Hx Cerebrovascular Accident, Hx Seizures Endocrine Medical History: Reports: Hx Diabetes Mellitus Type 2, Hx Hypothyroidism Renal/ Medical History: Denies: Hx Peritoneal Dialysis Musculoskeltal Medical History: Reports Hx Arthritis Past Surgical History: Reports: Hx Orthopedic Surgery, Hx Thyroid Surgery, Hx Tubal Ligation - Immunizations Hx Diphtheria, Pertussis, Tetanus Vaccination: No Physical Exam - Vital signs Vitals: Temp Pulse Resp BP Pulse Ox 98.2 F 81 18 148/96 H 100 06/12/19 08:26 06/12/19 08:26 06/12/19 08:26 06/12/19 08:26 06/12/19 08:26 Course - Vital Signs Vital signs: Temp Pulse Resp BP Pulse Ox 98.2 F 81 18 148/96 H 100 06/12/19 09:05 06/12/19 09:05 06/12/19 09:05 06/12/19 09:05 06/12/19 09:05 Doctor's Discharge - Discharge Referrals: KAYYLN MITCHELL PA [Primary Care Provider] - Follow up as needed
[2019-06-12 10:37] LABS: ABSOLUTE EOSINOPHILS # (AUTO) 0.1 10^3/uL (0.0-0.6); ABSOLUTE LYMPHOCYTES (AUTO) 1.6 10^3/uL (0.5-4.7); ABSOLUTE MONOCYTES (AUTO) 0.2 10^3/uL (0.1-1.4); BASOPHILS % (AUTO) 0.3 % (0-2); EOSINOPHILS % (AUTO) 1.1 % (0-6); HEMOGLOBIN 11.5 g/dL (12.0-15.5); LYMPHOCYTES % (AUTO) 31.8 % (13-45); MEAN CORPUSCULAR HEMOGLOBIN 28.3 pg (27.0-33.4); MEAN CORPUSCULAR HGB CONC 32.9 g/dL (32.0-36.0); MEAN CORPUSCULAR VOLUME 86 fl (80-97); MONOCYTES % (AUTO) 5.1 % (3-13); PLATELET COUNT 345 10^3/uL (150-450); RED BLOOD COUNT 4.08 10^6/uL (3.72-5.28); RED CELL DISTRIBUTION WIDTH 15.3 % (11.5-14.0); SEGMENTED NEUTROPHILS % (AUTO) 61.7 % (42-78); TOTAL CELLS COUNTED % (AUTO) 100 %; WHITE BLOOD COUNT 4.9 10^3/uL (4.0-10.5)
[2019-06-12 10:57] LABS: ALBUMIN 4.2 g/dL (3.5-5.0); ALKALINE PHOSPHATASE 45 U/L (38-126); ANION GAP 11 (5-19); ASPARTATE AMINO TRANSFERASE 20 U/L (14-36); BILIRUBIN,DIRECT 0.1 mg/dL (0.0-0.4); BILIRUBIN,TOTAL 0.3 mg/dL (0.2-1.3); BLOOD UREA NITROGEN 11 mg/dL (7-20); CARBON DIOXIDE 27 mmol/L (22-30); CHLORIDE 101 mmol/L (98-107); GLUCOSE 88 mg/dL (75-110); POTASSIUM 4.3 mmol/L (3.6-5.0); TOTAL PROTEIN 7.9 g/dL (6.3-8.2)
[2019-06-12] MEDS ORDERED: HYDROCODONE/ACETAMINOPHEN 5-325 MG TABLET PO ONE (12:35)
--- NOTE | 2019-06-12 12:40 | ER Document Report ---
ED Breast Problem - General Chief Complaint: Post Surgical Pain Stated Complaint: BREAST PAIN/SWELLING Time Seen by Provider: 06/12/19 09:38 Primary Care Provider: KAYLYN MITCHELL PA [NO LOCAL MD] - Follow up as needed Notes: Patient is a 38-year-old female with a history of high cholesterol, fibromyalgia, RA, chronic back pain who presents emergency department with a chief complaint of right breast pain. Patient reports she did have a right breast biopsy on June [address] Elizondo. She reports then she has had increased pain to the right breast specifically the nipple area. Patient reports that they were concerned for possible breast cancer due to an inverted nipple. Patient reports over the past week she has had increased redness and swelling to the nipple area. Patient reports she does have streaking that is starting to go up the right lateral aspect of the breast. Patient denies fever. Patient denies nipple drainage. TRAVEL OUTSIDE OF THE [place] IN LAST 30 DAYS: No - Related Data Allergies/Adverse Reactions: Penicillins Allergy (Verified 06/12/19 09:04) Past Medical History - General Information source: Patient - Social History Smoking Status: Current Every Day Smoker Lives with: Family Family History: Malignancy Patient has suicidal ideation: No Patient has homicidal ideation: No - Past Medical History Cardiac Medical History: Reports: Hx Hypercholesterolemia, Hx Hypertension Denies: Hx Coronary Artery Disease, Hx Heart Attack Pulmonary Medical History: Reports: None Denies: Hx Asthma, Hx Bronchitis, Hx COPD, Hx Pneumonia EENT Medical History: Reports: None Neurological Medical History: Reports: None. Denies: Hx Cerebrovascular Accident, Hx Seizures Endocrine Medical History: Reports: Hx Diabetes Mellitus Type 2, Hx Hypothyroidism Renal/ Medical History: Reports: None. Denies: Hx Peritoneal Dialysis Malignancy Medical History: Reports: None GI Medical History: Reports: None Musculoskeletal Medical History: Reports Hx Arthritis Skin Medical History: Reports None Psychiatric Medical History: Reports: None Traumatic Medical History: Reports: None Infectious Medical History: Reports: None Past Surgical History: Reports: Hx Orthopedic Surgery, Hx Thyroid Surgery, Hx Tubal Ligation - Immunizations Hx Diphtheria, Pertussis, Tetanus Vaccination: No Review of Systems - Review of Systems Constitutional: No symptoms reported EENT: No symptoms reported Cardiovascular: No symptoms reported Respiratory: No symptoms reported Gastrointestinal: No symptoms reported Genitourinary: No symptoms reported Female Genitourinary: No symptoms reported Musculoskeletal: No symptoms reported Skin: See HPI Hematologic/Lymphatic: No symptoms reported Neurological/Psychological: No symptoms reported Physical Exam - Vital signs Vitals: Temp Pulse Resp BP Pulse Ox 98.2 F 81 18 148/96 H 100 06/12/19 08:26 06/12/19 08:26 06/12/19 08:26 06/12/19 08:26 06/12/19 08:26 Interpretation: Hypertensive - Notes Notes: GENERAL: Well-appearing, well-nourished and in no acute distress. HEAD: Atraumatic, normocephalic. EYES: Pupils equal round and reactive to light, extraocular movements intact, sclera anicteric, conjunctiva are normal. ENT: Nares patent, oropharynx clear without exudates. Moist mucous membranes. NECK: Normal range of motion, supple without lymphadenopathy or JVD. LUNGS: Breath sounds clear to auscultation bilaterally and equal. No wheezes rales or rhonchi. HEART: Regular rate and rhythm without murmurs, rubs or gallops. ABDOMEN: Obese, soft, round, nontender, normoactive bowel sounds. No guarding, no rebound. No masses appreciated. BACK: No cervical, thoracic, lumbar midline tenderness. No saddle anesthesia, normal distal neurovascular exam. GENITOURINARY: Deferred. EXTREMITIES: Normal range of motion, no pitting or edema. No clubbing or cyanosis. NEUROLOGICAL: Cranial nerves II through XII grossly intact. Normal speech, normal gait. PSYCH: Normal mood, normal affect. SKIN: Warm, Dry, normal turgor, no rashes or lesions noted. RIGHT BREAST: inverted nipple, + erythema noted to the left side of the nipple, warm to touch, no drainage, + induration, erythematous streaking up the breast to the right upper quadrant. Course - Re-evaluation Re-evalutation: 06/12/19 14:04 I did speak with Dr. Navarrete regarding the patient's presentation and complaint. I am currently waiting on the ultrasound read to rule out abscess, I did speak with Dr. Mckenzie who will work on the ultrasound read. I did update the patient as to the delay. Patient verbalized understanding and denies questions at this time. 06/12/19 15:[address] Monge in regards to ultrasound read. 06/12/19 15:17 I did discuss the results of the Ultrasound with Dr. Monge, he will come to emergency department for breast evaluation. 06/12/19 15:24 Dr. Navarrete does recommend placing the patient on ciprofloxacin 500 mg twice daily for 5 days. Patient does have a follow-up appointment with Dr. Elizondo on , patient to keep her appointment. Patient was given strict return precautions in which she would need to return to the emergency department prior to . - Vital Signs Vital signs: Temp Pulse Resp BP Pulse Ox 98.2 F 81 18 148/96 H 100 06/12/19 09:05 06/12/19 09:05 06/12/19 09:05 06/12/19 09:05 06/12/19 09:05 - Laboratory Result Diagrams: 06/12/19 10:25 06/12/19 10:25 Laboratory results interpreted by me: Patient summary does not show significant leukocytosis, alteration electrolytes or kidney function. 06/12/19 06/12/19 10:25 10:25 Hgb 11.5 L Hct 35.0 L RDW 15.3 H Est GFR (MDRD) Non-Af 50 L 06/12/19 12:39 Laboratory 06/12/19 06/12/19 10:25 10:25 WBC 4.9 RBC 4.08 Hgb 11.5 L Hct 35.0 L MCV 86 MCH 28.3 MCHC 32.9 RDW 15.3 H Plt Count 345 Lymph % (Auto) 31.8 [place] % (Auto) 5.1 Eos % (Auto) 1.1 Baso % (Auto) 0.3 Absolute Neuts (auto) 3.0 Absolute Lymphs (auto) 1.6 Absolute Monos (auto) 0.2 Absolute Eos (auto) 0.1 Absolute Basos (auto) 0.0 Seg Neutrophils % 61.7 Sodium 139.0 Potassium 4.3 Chloride 101 Carbon Dioxide 27 Anion Gap 11 BUN 11 Creatinine 1.19 Est GFR ( Amer) > 60 Est GFR (MDRD) Non-Af 50 L Glucose 88 Calcium 9.0 Total Bilirubin 0.3 Direct Bilirubin 0.1 Neonat Total Bilirubin Not Reportable Neonat Direct Bilirubin Not Reportable Neonat Indirect Bili Not Reportable AST 20 ALT 11 Alkaline Phosphatase 45 Total Protein 7.9 Albumin 4.2 - Diagnostic Test Radiology reviewed: Reports reviewed Radiology results interpreted by me: 06/12/19 15:03 Breast Ultrasound 06/12/19 09:46 IMPRESSION: Markedly abnormal right nipple skin thickening up to 15 mm in t hickness. Ill-defined 2 cm hypoechoic mass with acoustic absorption in the immediate retroareolar region right breast. Differential malignant mass versus fibrosis from ongoing infection. No well-circumscribed fluid pocket worrisome for liquified abscess is identified. Surgical consultation recommended. In the absence of clinical contraindication, ultrasound biopsy of this area is recommended Discharge - Discharge Clinical Impression: Cellulitis of right breast Condition: Stable Disposition: HOME, SELF-CARE Additional Instructions: *Today was seen in the emergency department for right breast pain and redness. We did obtain an ultrasound which did not show an acute abscess. It does show that you do have a cellulitis. You were evaluated up by our on on-call surgical is Dr. Monge who recommends placing you on ciprofloxacin 500 mg twice a day for the next 5 days. Please keep your appointment with your surgeon in 2 days for a follow-up. Please return to the emergency department if you develop increasing redness to the right breast, fever, right breast swelling or drainage from the nipple. You can use warm compresses to the area and a supportive bra. Cellulitis You have an infection of your skin and underlying soft tissues called cellulitis. This is due to bacteria, which can enter through any break in the skin, or even through an irritated hair follicle. Untreated, cellulitis will usually worsen. Antibiotics are required. Usually, warm packs or warm soaks, and elevation of the infected area are recommended. You should start getting better within 24 to 36 hours. Most infections respond quickly to the right medication. Follow-up care is important, however, to check for abscess (boil) formation, unsuspected foreign body, or resistant infection. If you develop fever, chills, or if the area of infection is becoming rapidly more swollen or painful, call the doctor at once. Prescriptions: Ciprofloxacin HCl [Cipro 500 mg Tablet] 500 mg PO BID #10 tablet Ibuprofen [Motrin 800 mg Tablet] 800 mg PO Q8H PRN #30 tab PRN Reason: Referrals: KAYLYN MITCHELL PA [NO LOCAL MD] - Follow up as needed
--- NOTE | 2019-06-12 15:00 | RADIOLOGY REPORT (SQ) ---
EXAM DESCRIPTION: U/S BREAST UNILATERAL LIMITED COMPLETED DATE/TIME: 06/12/2019 11:30 am REASON FOR STUDY: questionable abscess after breast biopsy COMPARISON: Mammograms and ultrasound 05/30/2019 Breast ultrasound 04/26/2019 TECHNIQUE: Static and Realtime grayscale interrogation of the right nipple acquired. Selected color doppler/spectral images saved to PACS. LIMITATIONS: None. FINDINGS: Ultrasound of the right retroareolar region was performed. There is diffuse abnormal skin thickening up to 1.5 cm in thickness in the periareolar region. Deep to the right nipple, a hypoechoic ill-defined mass is present measuring 2 x 2 cm in size with a single echogenic focus. Some acoustic absorption is present. Echogenic focus is cysts of uncertain etiology and could represent an air bubble or calcification. It is possible this could represent a b iopsy clip. Findings are worrisome for either ongoing cellulitis/infection with retroareolar fibrosis, or Paget's disease/malignancy with extension into the retroareolar breast tissue. These findings were discussed with Dr. Whiting in the emergency room. IMPRESSION: Markedly abnormal right nipple skin thickening up to 15 mm in thickness. Ill-defined 2 cm hypoechoic mass with acoustic absorption in the immediate retroareolar region right breast. Diffe rential malignant mass versus fibrosis from ongoing infection. No well-circumscribed fluid pocket worrisome for liquified abscess is identified. Surgical consultation recommended. In the absence of clinical contraindication, ultrasound biopsy of this area is recommended BIRAD: 4 Suspicious. Biopsy should be performed in the absence of clinical contra-indication. Surgical consultation recommended RECOMMENDATION: RECOMMENDED FOLLOW-UP: Biopsy and surgical consultation for right nipple abnormality COMMENT: These findings were discussed with Dr. Whiting in the emergency room [employer] (A[employer]) has developed recommendations for screening MRI of the breast s in certain patient populations, to be used in conjunction with mammography. Breast MRI surveillanc e may be appropriate for women with more than 20% lifetime risk of developing breast cancer as deter mined by genetic testing, significant family history of the disease, or history of mantle radiation f or Hodgkins Disease. ACR Practice Guidelines 2008. TECHNICAL DOCUMENTATION: FINDING NUMBER: (1) ASSESSMENT: (1) JOB ID: [id number] [employer]- All Rights Reserved Reading location - IP/workstation name: [email or web address]
[2019-06-12] MEDS ORDERED: CIPROFLOXACIN HCL 500 MG TABLET PO ONE (15:25)
[2019-06-12] MEDS ORDERED: HYDROCODONE/ACETAMINOPHEN 5-325 MG (6 TAB/ER DISP) PO PRN (15:26)
[2019-06-12 15:42] VITALS: BP 132/81
--- NOTE | 2019-06-12 15:45 | PDOC CONSULTATION ---
Consultation Consult Date: 06/12/19 Provider Consulted: GRACE FALLON Consult reason:: Pains and swelling along the right breast core biopsy site History of Present Illness Admission Date/PCP: CRISTIAN JULIO MD History of Present Illness: ENEDINA GARCIA is a 38 year old female who had a core biopsy of the right breast lesion 06/07/[address] Elizondo. Patient has been complaining of pains with swelling along along the right breast at the core puncture site. An ultrasound was done by ER SARAH which did not show any collection. Past Medical History Cardiac Medical History: Reports: Hyperlipidema, Hypertension Denies: Coronary Artery Disease, Myocardial Infarction Pulmonary Medical History: Reports: None Denies: Asthma, Bronchitis, Chronic Obstructive Pulmonary Disease (COPD), Pneumonia EENT Medical History: Reports: None Neurological Medical History: Reports: None Denies: Seizures Endocrine Medical History: Reports: Diabetes Mellitus Type 2, Hypothyroidism Renal/ Medical History: Reports: None Malignancy Medical History: Reports: None GI Medical History: Reports: None Musculoskeltal Medical History: Reports: Arthritis Skin Medical History: Reports: None Psychiatric Medical History: Reports: None Traumatic Medical History: Reports: None Hematology: Denies: Anemia Infectious Medical History: Reports: None Past Surgical History Past Surgical History: Reports: Orthopedic Surgery, Tubal Ligation, Other - Core biopsy right breast 06/07/2019 Social History Lives with: Family Smoking Status: Current Every Day Smoker Family History Family History: Malignancy Parental Family History Reviewed: Yes Children Family History Reviewed: No Sibling(s) Family History Reviewed.: No Medication/Allergy Home Medications: Aripiprazole [Abilify] 50 mg PO DAILY 03/07/13 Desvenlafaxine Succinate [Pristiq] 50 mg PO DAILY 03/07/13 Levothyroxine Sodium [Synthroid 100 Mcg Tablet] 200 mcg PO DAILY 03/07/13 Ibuprofen [Motrin 800 Mg Tablet] 800 mg PO ASDIR PRN 03/14/13 Erythromycin Base [Erythromycin Oph 1 gm Oint Ud] 1 applic OP TID #1 tube 06/18/14 Oxycodone HCl/Acetaminophen [Percocet 5-325 mg Tablet] 1 tab PO Q4H PRN #25 tablet 06/18/14 Cephalexin Monohydrate [Keflex 500 mg Capsule] 500 mg PO Q6H 5 Days capsule 10/03/14 Polymyxin B Sulfate/Tmp [Polytrim Oph Soln 10 ml] 1 drop BTH_EYE ASDIR #1 bottle 10/03/14 Oxycodone HCl/Acetaminophen [Percocet 5-325 mg Tablet] 1 tab PO ASDIR PRN #15 tablet 10/16/16 Oxycodone HCl/Acetaminophen [Percocet 5-325 mg Tablet] 1 tab PO ASDIR PRN #12 tablet 01/29/18 Diazepam [Valium 5 mg Tablet] 1 - 2 tab PO TID PRN #12 tablet 11/18/18 Ciprofloxacin HCl [Cipro 500 mg Tablet] 500 mg PO BID #10 tablet 06/12/19 Ibuprofen [Motrin 800 mg Tablet] 800 mg PO Q8H PRN #30 tab 06/12/19 Allergies/Adverse Reactions: Penicillins Allergy (Verified 06/12/19 09:04) Review of Systems Constitutional: PRESENT: other - Denies fever no chills Breasts: PRESENT: other - Right breast pains Physical Exam Vital Signs: Temp Pulse Resp BP Pulse Ox 98.2 F 81 18 148/96 H 100 06/12/19 09:05 06/12/19 09:05 06/12/19 09:05 06/12/19 09:05 06/12/19 09:05 Intake & Output 06/11/19 06/12/19 06/13/19 06:59 06:59 06:59 Weight 134.1 kg General appearance: PRESENT: mild distress Exam: Right breast is a puncture site along the right upper outer quadrant with mild erythema no drainage and slightly tender at this area also closed with areolar area. Eye exam: PRESENT: conjunctiva pink Mouth exam: PRESENT: moist Neck exam: PRESENT: full ROM Cardiovascular exam: PRESENT: RRR Pulses: PRESENT: normal radial pulses Vascular exam: PRESENT: normal capillary refill GI/Abdominal exam: PRESENT: soft Rectal exam: PRESENT: deferred Results Laboratory Results: 06/12/19 10:25 06/12/19 10:25 06/12/19 06/12/19 10:25 10:25 WBC 4.9 RBC 4.08 Hgb 11.5 L Hct 35.0 L MCV 86 MCH 28.3 MCHC 32.9 RDW 15.3 H Plt Count 345 Seg Neutrophils % 61.7 Sodium 139.0 Potassium 4.3 Chloride 101 Carbon Dioxide 27 Anion Gap 11 BUN 11 Creatinine 1.19 Est GFR ( Amer) > 60 Glucose 88 Calcium 9.0 Total Bilirubin 0.3 AST 20 Alkaline Phosphatase 45 Total Protein 7.9 Albumin 4.2 Impressions: Breast Ultrasound 06/12/19 09:46 IMPRESSION: Markedly abnormal right nipple skin thickening up to 15 mm in thic kness. Ill-defined 2 cm hypoechoic mass with acoustic absorption in the immediate retroareolar region right breast. Differential malignant mass versus fibrosis from ongoing infection. No well-circumscribed fluid pocket worrisome for liquified abscess is identified. Surgical consultation recommended. In the absence of clinical contraindication, ultrasound biopsy of this area is recommended Assessment & Plan - Time Time Spent: 30 to 50 Minutes - Plan Summary Plan Summary: No evidence of abscess but has appears to have a starting cellulitis. Discussed with ER SARAH who will prescribe Cipro 500 mg p.o. twice a day for the next 5 days. Patient to keep her appointment in the surgical clinic in [address] Elizondo.
== END 2019-06-12 15:42 | disposition home or self-care (01) ==
LOC: ER 08:18
DX: N61.0 Mastitis without abscess (principal); N64.4 Mastodynia; E78.00 Pure hypercholesterolemia, unspecified; M79.7 Fibromyalgia; G89.29 Other chronic pain; M54.9 Dorsalgia, unspecified; F17.200 Nicotine dependence, unspecified, uncomplicated; I10 Essential (primary) hypertension; E11.9 Type 2 diabetes mellitus without complications; Z88.0 Allergy status to penicillin; Z98.51 Tubal ligation status
CPT/HCPCS: 36415; 85025; 80053; 76642; J3490; 99284

== ENCOUNTER → 2020-04-07 | Outpatient (CLI) | payer MEDICAID ==
--- NOTE | 2020-04-07 11:35 | WOMENS IMAGING REPORT ---
EXAM DESCRIPTION: 3D DX MAMMO BILAT IMAGES COMPLETED DATE/TIME: 04/07/2020 10:53 am REASON FOR STUDY: N63.10 NSPECIFIED LUMP IN THE RIGHT BREAST, UNSPECIFIED QUADRANT N63.10 UNSPECIFI ED LUMP IN THE RIGHT BREAST, UNSPECIFIED MONICA COMPARISON: 2017 EXAM PARAMETERS: Standard craniocaudal and mediolateral oblique views of each breast recorded using digital acquisition and breast tomosynthesis. True lateral view right breast. Read with the assistance of CAD: .[facility] - [employer] Version 9.2 LIMITATIONS: None. FINDINGS: RIGHT BREAST MASSES: No suspicious masses. CALCIFICATIONS: No new or suspicious calcifications. ARCHITECTURAL DISTORTION: Focal asymmetry with architectural distortion in the subareolar biopsy site . ASYMMETRY: See above. OTHER: No other significant findings. LEFT BREAST MASSES: No suspicious masses. CALCIFICATIONS: No new or suspicious calcifications. ARCHITECTURAL DISTORTION: None. ASYMMETRY: None noted. OTHER: No other significant finding. Ultrasound could not be performed same visit. IMPRESSION: Focal asymmetry and architectural distortion right breast. BREAST DENSITY: b. There are scattered areas of fibroglandular density. BIRAD: ASSESSMENT: 0 Incomplete: Needs additional imaging evaluation and/or prior mammograms for co mparison. RECOMMENDATION: RECOMMENDED FOLLOW UP: Ultrasound right breast. SPECIFIC INTERVENTION/IMAGING/CONSULTATION RECOMMENDED:See above. COMMUNICATION:The imaging findings were discussed with the patient. She is aware that additional adva nced imaging/consultation may be required. Her referring physician has been notified. COMMENT: The patient has been notified of the results by letter per [place] requirements. Additional no tification policies are in place for contacting patient with suspicious or incomplete findings. Quality ID #[id number]: The [employer] recommends an annual screening mammogram for women aged 40 years or over. This facility utilizes a reminder system to ensure that all patients receive reminder letters, and/or direct phone calls for appointments. This includes reminders for routine scr eening mammograms, diagnostic mammograms, or other Breast Imaging Interventions when appropriate. Th is patient will be placed in the appropriate reminder system. TECHNICAL DOCUMENTATION: FINDING NUMBER: (1) ASSESSMENT: (1) JOB ID: [id number] 2010 [email or web address]- All Rights Reserved Reading location - IP/workstation name: [email or web address]
== END ==
LOC: WI 10:17
PROVIDERS: ATTEND Surgery
DX: N64.89 Other specified disorders of breast (principal)
CPT/HCPCS: 77066; G0279; 77062